=== PATIENT | female | born 1980 | race Caucasian/White ===

== ENCOUNTER 2020-03-14 23:31 | Emergency (ER) | payer OTHER ==
[~2020-03-14] VITALS: Ht 157.5 cm; Wt 63.6 kg
[2020-03-15] MEDS ORDERED: IBUPROFEN 200 MG TABLET. PO ONE
--- NOTE | 2020-03-15 00:08 | PHYS DOC ---
Past Medical History Past Medical History: Anxiety, Bipolar, Depression Additional Past Medical Histor: BIPOLAR W PSYCHOSIS,PTSD,ADHD (GLENN GALLAGHER MANUFACTURING ENGINEERING PROFESSOR) Past Surgical History: Appendectomy, , Other Additional Past Surgical Histo: LAPROSCOPY,L JAW,BREAST AUG (GLENN GALLAGHER MANUFACTURING ENGINEERING PROFESSOR) Smoking Status: Current Every Day Smoker Alcohol Use: None Drug Use: None (GLENN GALLAGHER MANUFACTURING ENGINEERING PROFESSOR) General Adult EDM: Chief Complaint: LOWEREXTREMITY INJURY HPI: HPI: Patient is a 39 year old female who presents with patient states 2 days ago she dropped a dresser on her left foot. She states she went to urgent care yeste rday and they took x-rays and then send him to . She states she went to but she does not like and it was busy so she left. She is here today because she is wanting pain medication. The foot is 2+ swollen on the dorsal foot with bruising and tenderness. She states that she cannot wiggle the left great toe but she can wiggle her other toes. She denies injury to her ankle. Patient rates her pain a 10 out of 10 and states is worse when she is standing and trying to walk on it. Patient has a history of bipolar with psychosis, PTSD, breast augmentation, , smoker, anxiety. (GLENN GALLAGHER MANUFACTURING ENGINEERING PROFESSOR) Review of Systems: Review of Systems: Constitutional: Denies fever or chills. [] Eyes: Denies change in visual acuity. [] HENT: Denies nasal congestion or sore throat. [] Respiratory: Denies cough or shortness of breath. [] Cardiovascular: Denies chest pain. +left foot 3+edema. [] GI: Denies abdominal pain, nausea, vomiting, bloody stools or diarrhea. [] : Denies dysuria. [] Musculoskeletal: Denies back pain. +Left foot joint pain. [] Integument: Denies rash. + Left dorsal foot bruising [] Neurologic: Denies headache, focal weakness or sensory changes. [] Endocrine: Denies polyuria or polydipsia. [] Lymphatic: Denies swollen glands. [] Psychiatric: Denies depression or anxiety. [] (GLENN GALLAGHER MANUFACTURING ENGINEERING PROFESSOR) Heart Score: Risk Factors: Risk Factors: DM, Current or recent (<one month) smoker, HTN, HLP, family history of CAD, obesity. Risk Scores: Score 0 - 3: 2.5% MACE over next 6 weeks - Discharge Home Score 4 - 6: 20.3% MACE over next 6 weeks - Admit for Clinical Observation Score 7 - 10: 72.7% MACE over next 6 weeks - Early Invasive Strategies (GLENN GALLAGHER APRN) Current Medications: Current Medications Medications (Trade) Dose Ordered Sig/Rebeka Start Time Stop Time Status Last Admin Dose Admin Ibuprofen (Motrin) 600 mg 1X ONCE 03/15/20 00:00 03/15/20 00:01 (GLENN GALLAGHER APRN) Allergies: Allergies: Allergies Coded Allergies Type Severity Reaction Last Updated Verified Sulfa (Sulfonamide Antibiotics) Allergy Unknown Itching 03/14/20 Yes morphine Allergy Unknown throat swells up 10/21/14 No phenytoin Allergy Unknown seizures 10/21/14 No tramadol Allergy Unknown hives 10/21/14 No (GLENN GALLAGHER APRN) Physical Exam: PE: Constitutional: Well developed, well nourished, no acute distress, non-toxic appearance. [] HENT: Normocephalic, atraumatic, bilateral external ears normal, oropharynx moist, no oral exudates, nose normal. [] Eyes: PERRLA, EOMI, conjunctiva normal, no discharge. [] Neck: Normal range of motion, no tenderness, supple, no stridor. [] Cardiovascular:Heart rate regular rhythm, no murmur [] Lungs & Thorax: Bilateral breath sounds clear to auscultation [] Abdomen: Bowel sounds normal, soft, no tenderness, no masses, no pulsatile masses. [] Skin: Warm, dry, no erythema, no rash. Left dorsal foot bruising [] Back: No tenderness, no CVA tenderness. [] Extremities: Left dorsal foot tenderness, no cyanosis, no clubbing, left great toe ROM not intact, 3+ edema. [] Neurologic: Alert and oriented X 3, normal motor function, normal sensory functi on, no focal deficits noted. [] Psychologic: Affect normal, judgement normal, mood normal. [] (GLENN GALLAGHER APRN) EKG: EKG: [] (GLENN GALLAGHER APRN) Radiology/Procedures: Radiology/Procedures: [] (GLENN GALLAGHER APRN) Radiology/Procedures: IMAGING REPORT Signed PATIENT: ROSSI MESSER ACCOUNT: [id number] : 1980 LOCATION: ER AGE: 39 SEX: F EXAM STATUS: REG ER ORD. PHYSICIAN: GLENN GALLAGHER APRN REASON: PAIN, INJURY PROCEDURE: FOOT LEFT 3V Left ankle x-rays 3 views HISTORY: Left ankle pain, injury. FINDINGS: No fracture. No dislocation. No talus osteochondral lesion. The soft tissues are unremarkable. IMPRESSION: No acute osseous injury of the left ankle. Left foot x-rays 3 views HISTORY: Injury, pain. FINDINGS: Small os navicular. No fracture. No dislocation. No arthritic change. Soft tissues are unremarkable. IMPRESSION: No acute osseous injury of the left foot. Electronically signed by: Josemanuel Acosta MD (03/15/2020 12:30 AM) [facility] [place] DICTATED and SIGNED BY: JOSEMANUEL ACOSTA MD DATE: 03/15/20 [id number] (ANJEL SANCHES DO) Course & Med Decision Making: Course & Med Decision Making Pertinent Labs and Imaging studies reviewed. (See chart for details) See HPI. Pedal pulses strong and present. There is bruising to the dorsal left foot with 2-3+ swelling. Cap refills less than 2 seconds. No deformity to any joints or laxity to any joints. No swelling to the ankle or deformity to the ankle. She can rotate at the ankle. Sensations intact. Skin is warm and dry. Patient states she is allergic to sulfa, Tylenol, morphine, phenytoin, tramadol. Patient is given ibuprofen at this time and she states that she can take fentanyl or Dilaudid and would like something stronger. 0007: Patient is reported off to Dr. Sanches. [] (GLENN GALLAGHER APRN) Course & Med Decision Making Concern for foot contusion with swelling, xrays with no obvious fx. Recommended conservative measures with neie-saf-evpjups analgesia and rice instructions. W ill discharge home with strict ED return precautions were given for skin color changes, neuro deficits or joint swelling/fever. Offered crutches/splint. Encouraged urgent outpatient follow-up with PMD and orthopedic surgery or podiatry. Life-threatening processes were considered but are low suspicion at this time, given history, physical exam and ED workup. Pt was educated on all prescription medications and adverse effects. All patient's questions were answered and pt was stable at time of discharge. Life/limb-threatening differential includes but is not limited to, avascular necrosis, septic arthritis, malignancy, compartment syndrome, fracture/ligamentous injury/overuse, decompression sickness, seronegative spondyloarthropathies, trauma including dislocation/fracture, Lyme disease, lupus, arthritis differentials, gout/pseudogout or decompression sickness. I spoken with the patient and her caregivers. I explained the patient's condition, diagnoses and treatment plan based on the information available to me at this time. I have answered the patient and her caregiver's questions and addressed any concerns. The patient and her caregivers have a good understanding of patient's diagnosis, condition and treatment plan as can be expected at this point. Vital signs have been stable. Patient's condition is stable and appropriate for discharge from the emergency department. Patient will pursue further outpatient evaluation with primary care physician or other designated or consulting physician as outlined in the discharge instructions. The patient and/or caregivers are agreeable to this plan of care and follow-up instructions have been explained in detail. The patient and/or caregivers have received these instructions in written form and have expressed an understanding of the discharge instructions. The patient and/or caregivers are aware that any significant change of condition or worsening of symptoms should prompt immediate return to this or the closest emergency department or call to 911. (ANJEL ALMONTE DO) Zena Disclaimer: Zena Disclaimer: This electronic medical record was generated, in whole or in part, using a voice recognition dictation system. (GLENN GALLAGHER APRN) Departure Departure Impression: Primary Impression: Left foot pain Additional Impressions: Contusion of foot, left Pain and swelling of toe of left foot Disposition: 01 DC HOME SELF CARE/HOMELESS Condition: STABLE Referrals: NO PCP (PCP) FOLLOW UP WITH FAMILY MEDICINE: Family Medicine Address: [address] [place] [id number] Patient Instructions: Foot Contusion, RICE - Routine Care for Injuries Additional Instructions: FOLLOW UP WITH ORTHOPEDICS: Orthopaedic Sports Medicine Orthopaedic Surgery [facility] Address: [address] [facility] [address] [place] [address] FOLLOW UP WITH PODIATRY: Podiatric Surgery Address: [address] [facility] [address] [place] [address] EMERGENCY DEPARTMENT GENERAL DISCHARGE INSTRUCTIONS Thank you for coming to [facility] Emergency Department (ED) today and trusting us with you care. We trust that you had a positive experience in our Emergency Department. If you wish to speak to the department management, you may call the Director at [phone]. YOUR FOLLOW UP INSTRUCTIONS ARE FOLLOWS: 1. Do you have a private Doctor? If you do not have a private doctor, please ask for a resource list of physicians or clinics that may be able to assist you with follo w up care. 2. The Emergency Physicain has interpreted your x-rays. The X-Ray specialist will also review them. If there is a change in the findings, you will be notified in 48 hours when at all possible. 3. A lab test or culture has been done, your results will be reviewed and you will be notified if you need a change in treatment. ADDITIONAL INSTRUCTIONS AND INFORMATION: 1. Your care today has been supervised by a physician who is specially trained in emergency care. Many problems require more than one evaluation for a complete diagnosis and treatment. We recommend that you schedule your follow up appointment as rec ommended to ensure complete treatment of you illness or injury. If you are unable to obtain follow up care and continue to have a problem, or if your condition worsens, we recommend that you return to the ED. 2. We are not able to safely determine your condition over the phone nor are we able to give sound medical advice over the phone. For these safety reasons, if you call for medical advice we will ask you to come to the ED for further evaluation. 3. If you have any questions regarding these discharge instructions please call the ED at [phone]. SAFETY INFORMATION: In the interest of safety, wellness, and injury prevention; we encourage you to wear your sealbelt, if you smoke; quite smoking, and we encourage family to use a protective helmet for bicycling and other sporting events that present an increased risk for head injury. IF YOUR SYMPTOMS WORSEN OR NEW SYMPTOMS DEVELOP, OR YOU HAVE CONCERNS ABOUT YOUR CONDITION; OR IF YOUR CONDITION WORSENS WHILE YOU ARE WAITING FOR YOUR FOLLOW UP APPOINTMENT; EITHER CONTACT YOUR PRIMARY CARE DOCTOR, THE PHYSICIAN WHOSE NAME AND NUMBER YOU WERE GIVEN, OR RETURN TO THE ED IMMEDIATELY. GLENN GALLAGHER APRN Mar 15, 2020 00:08 ANJEL SANCHES DO Mar 15, 2020 00:58
--- NOTE | 2020-03-15 00:32 | RAD ---
Left ankle x-rays 3 views HISTORY: Left ankle pain, injury. FINDINGS: No fracture. No dislocation. No talus osteochondral lesion. The soft tissues are unremarkab le. IMPRESSION: No acute osseous injury of the left ankle. Left foot x-rays 3 views HISTORY: Injury, pain. FINDINGS: Small os navicular. No fracture. No dislocation. No arthritic change. Soft tissues are unre markable. IMPRESSION: No acute osseous injury of the left foot. Electronically signed by: Julio Acosta MD (03/15/2020 12:30 AM) [facility]
[2020-03-15 00:40] VITALS: BP 105/69
== END 2020-03-15 01:07 | disposition home or self-care (01) ==
LOC: ER 23:31
DX: S90.32XA Contusion of left foot, initial encounter (principal); F31.9 Bipolar disorder, unspecified; F41.9 Anxiety disorder, unspecified; F17.200 Nicotine dependence, unspecified, uncomplicated; F90.9 Attention-deficit hyperactivity disorder, unspecified type; Z88.2 Allergy status to sulfonamides; Z88.5 Allergy status to narcotic agent; Z88.6 Allergy status to analgesic agent; Z88.8 Allergy status to other drugs, medicaments and biological substances; W20.8XXA Other cause of strike by thrown, projected or falling object, initial encounter; Y93.89 Activity, other specified; Y92.89 Other specified places as the place of occurrence of the external cause; Y99.8 Other external cause status
CPT/HCPCS: 73610; 73630; 99284